=== PATIENT | male | born 1970 | race Caucasian/White ===

== ENCOUNTER 2019-05-09 12:37 | Emergency (ER) | payer SELFPAY ==
[~2019-05-09] VITALS: Ht 172.7 cm; Wt 70.0 kg
[2019-05-09 12:59] VITALS: BP 110/85
== END 2019-05-09 17:58 | disposition left against medical advice (07) ==
LOC: ER 12:37
DX: F15.90 Other stimulant use, unspecified, uncomplicated (principal); Z00.00 Encounter for general adult medical examination without abnormal findings
CPT/HCPCS: 99283

== ENCOUNTER 2019-08-21 18:31 | Emergency (ER) | payer SELFPAY ==
[~2019-08-21] VITALS: Ht 167.6 cm; Wt 86.0 kg
[2019-08-21] MEDS ORDERED: SODIUM CHLORIDE 0.9% 1,000 ML IV ONE (23:35)
[2019-08-21] MEDS ORDERED: ONDANSETRON HCL 4MG/2ML INJ IV ONE (23:45)
[2019-08-21] MEDS ORDERED: LORAZEPAM 2MG/ML CPJ IV ONE (23:45)
[2019-08-21] MEDS ORDERED: OLANZAPINE 10 MG/VIAL IM ONE (23:45)
[2019-08-22 01:15] LABS: CLARITY URINE CLEAR (CLEAR); COLOR URINE YELLOW (YELLOW); KETONES URINE 1+ (NEGATIVE); LEUKOCYTE ESTERASE URINE NEGATIVE (NEGATIVE); NITRITE URINE NEGATIVE (NEGATIVE); OCCULT BLOOD URINE NEGATIVE (NEGATIVE); PROTEIN URINE NEGATIVE (NEGATIVE); SPECIFIC GRAVITY URINE 1.029 (1.005-1.030)
[2019-08-22 01:18] LABS: CHLORIDE 103 mEq/L (98-107)
[2019-08-22 01:21] LABS: ETHANOL BLOOD < 10 mg/dL
[2019-08-22 01:23] LABS: BASOPHILS % 0.5 % (0.0-2.0); EOSINOPHILS % 0.8 % (0.0-5.0); HEMATOCRIT. 42.4 % (42.0-52.0); HEMOGLOBIN. 14.5 g/dL (14.0-18.0); LYMPHOCYTES % 18.2 % (20.0-50.0); MEAN CORPUSCULAR HEMOGLOBIN 31.7 pg (28.0-32.0); MEAN CORPUSCULAR VOLUME 92.7 fL (80.0-94.0); MEAN PLATELET VOLUME 10.3 fl (7.4-10.4); MONOCYTES % 7.6 % (2.0-8.0); NEUTROPHILS % 72.9 % (40.0-76.0); PLATELET 301 x1000/uL (130-400); RED BLOOD CELL COUNT 4.58 mill/uL (4.7-6.1); RED CELL DISTRIBUTION WIDTH 13.7 % (11.6-14.6)
[2019-08-22 01:25] LABS: *AMPHETAMINES SCREEN URINE PRESUMTIVE POSITIVE (NEGATIVE); *BARBITURATES SCREEN URINE NEGATIVE (NEGATIVE); *BENZODIAZEPINES SCREEN URINE NEGATIVE (NEGATIVE); *COCAINE SCREEN URINE NEGATIVE (NEGATIVE)
[2019-08-22 01:26] LABS: CANNABINOID URINE SCREEN NEGATIVE (NEGATIVE); METHADONE URINE SCREEN NEGATIVE (NEGATIVE); OPIATES URINE SCREEN NEGATIVE (NEGATIVE); PHENCYCLIDINE URINE SCREEN NEGATIVE (NEGATIVE)
[2019-08-22 04:34] VITALS: BP 110/67
== END 2019-08-22 04:48 | disposition home or self-care (01) ==
LOC: ER 18:31
DX: G93.40 Encephalopathy, unspecified (principal); T50.911A Poisoning by multiple unspecified drugs, medicaments and biological substances, accidental (unintentional), initial encounter; F17.200 Nicotine dependence, unspecified, uncomplicated; Y92.9 Unspecified place or not applicable
CPT/HCPCS: 36415; 70450; 71045; 80053; 80305; 80307; 80320; 80329; 81003; 85025; 96361; 96372; 96374; 96375; 99285; J2060; J2405; J3490; J7030; G0480

== ENCOUNTER 2021-01-28 11:28 | Emergency (ER) | payer SELFPAY ==
[~2021-01-28] VITALS: Ht 182.9 cm; Wt 82.0 kg
[2021-01-28 11:41] VITALS: BP 128/42
== END 2021-01-28 12:40 | disposition home or self-care (01) ==
LOC: ER 11:28
DX: K52.9 Noninfective gastroenteritis and colitis, unspecified (principal); E78.5 Hyperlipidemia, unspecified
CPT/HCPCS: 99281